=== PATIENT | female | born 1985 | race African-American/Black ===

== ENCOUNTER 2019-11-30 12:05 | Inpatient (IN) | payer OTHER ==
[~2019-11-30 12:05] MED LIST: Bupivacaine 0.25% HCL 30 ML VIAL ONE
[2019-12-03] MEDS ORDERED: Acetaminophen 500 MG TAB PO PRN (06:17)
[2019-12-03] MEDS ORDERED: Lidocaine 1% (PF) 30 ML VIAL SC PRN (06:17)
[2019-12-03] MEDS ORDERED: Butorphanol Tartrate 1 MG/ML VIAL SLOW IVP PRN (06:17)
[2019-12-03] MEDS ORDERED: NS / Oxytocin 40 units/1000ml 1,000 ML IV PRN (06:17)
[2019-12-03] MEDS ORDERED: Misoprostol 200 MCG TAB PR PRN (06:17)
[2019-12-03] MEDS ORDERED: HYDROcodone/Acetaminophen 5/325 mg Tablet PO PRN (06:17)
[2019-12-03] MEDS ORDERED: Promethazine HCl 25 MG/ML VIAL IM PRN ×2 (06:17→13:22)
[2019-12-03] MEDS ORDERED: Ibuprofen 800 MG TAB PO PRN (06:17)
[2019-12-03] MEDS ORDERED: Ondansetron PF 4 MG/2 ML Vial IVP PRN ×2 (06:17→13:22)
[2019-12-03] MEDS ORDERED: Carboprost 250 MCG/ML AMP IM PRN (06:17)
[2019-12-03] MEDS ORDERED: hydrALAZINE 20 MG/ML VIAL SLOW IVP PRN ×2 (06:17→18:30)
[2019-12-03] MEDS ORDERED: NS w/ Oxytocin 10 units 500 ML IV SCH ×2 (06:17)
[2019-12-03] MEDS ORDERED: Diphenoxylate HCl/Atropine Tablet PO PRN (06:17)
[2019-12-03] MEDS ORDERED: Penicillin G Potassium 5 MILL.UNITS in Sodium Chloride 0.9% 100 ML IVPB SCH (06:30)
[2019-12-03 06:36] VITALS: BMI 38.9
[2019-12-03 07:23] LABS: Hemoglobin 13.1 g/dL (12.0-16.0); Mean Corpuscular HGB CONC 32.6 g/dL (32.0-36.0); Mean Corpuscular Hemoglobin 28.2 pg (27.0-31.0); Mean Corpuscular Volume 86.6 fL (78.0-98.0); Mean Platelet Volume 8.1 fL (7.4-10.4); Platelet Count 258 thou/uL (130-400); RBC Distribution Width 13.1 % (11.5-14.5); Red Blood Cell (RBC) Count 4.65 mill/uL (4.20-5.40); White Blood Cell (WBC) Count 9.4 thou/uL (4.8-10.8)
[2019-12-03 08:12] LABS: Syphilis Antibody Nonreactive (Nonreactive); Syphilis Antibody Index 0.04 S/CO (<1.00 Non-Reactive)
[2019-12-03 08:13] LABS: HBSAg Index 0.24 S/CO (0-0.99); Hep B Surf Ag Non-Reactive S/CO (NonReactive)
[2019-12-03] MEDS: Penicillin G 2.5 MILL.units 2.5 MILL.UNITS in Premix Bag 1 BAG IVPB SCH (11:50)
[2019-12-03] MEDS ORDERED: Fentanyl 4 mcg/Bup 0.1% Cadd 100 ML ONE (12:42)
[2019-12-03] MEDS ORDERED: EPHEDRINE 25 MG/5 ML SYRINGE SLOW IVP PRN (13:22)
[2019-12-03] MEDS ORDERED: diphenhydrAMINE 50 MG/ML VIAL IVP PRN (13:22)
[2019-12-03] MEDS ORDERED: Acetaminophen 325 MG TAB PO PRN (13:22)
[2019-12-03] MEDS ORDERED: Naloxone HCl 0.4 mg/ml Vial IVP PRN ×2 (13:22)
[2019-12-03] MEDS ORDERED: Lactated Ringer's 500 ML IV PRN (13:22)
[2019-12-03] MEDS ORDERED: Fentanyl 4 mcg/Bupivacaine 0.1% Cassette 100 ML EPIDURAL SCH (13:30)
[2019-12-03] MEDS ORDERED: Communication Order-Pharmacy FS SCH (13:30)
--- NOTE | 2019-12-03 16:01 | PDOC.OPDEL ---
OB Operative/Delivery Note Delivery Dr/Surgeon: Jo Pre-Delivery Diagnosis: medically indicated induction Procedure/Post Delivery Dx: spontaneous vaginal delivery Weeks gestation: 37 Anesthesia: epidural - Findings A Sex: male Weight: 7 lb 6 oz - 1 min: 8 - 5 min: 9 - Additional Findings/Plan Placenta delivered: spontaneous Repaired Obstetrical Laceration: periurethral Compilations/Other Findings: Anterior shoulder delivery aided by McRobert's and suprapubic pressure. [place] more related to maternal expulsive effort. APGARS 8/9...Shoulder delivered quickly with above procedures. Post delivery plan: routine recovery
[2019-12-03] MEDS ORDERED: NS / Oxytocin 40 units/1000ml 1,000 ML ONE (18:04)
[2019-12-03] MEDS ORDERED: traMADol HCl 50 MG TAB PO PRN (18:30)
[2019-12-03] MEDS ORDERED: Bisacodyl 10 MG SUPP PR PRN (18:30)
[2019-12-03] MEDS ORDERED: NS / Oxytocin 40 units/1000ml 1,000 ML IV SCH (18:30)
[2019-12-03] MEDS ORDERED: Milk Of Magnesia 30 ML UDCUP PO PRN (18:30)
[2019-12-03] MEDS: Docusate Calcium (SURFAK) 240 MG CAP PO SCH (21:17)
[2019-12-03] MEDS: Ibuprofen 800 MG TAB PO SCH (21:17)
[2019-12-04] MEDS: Penicillin G 2.5 MILL.units 2.5 MILL.UNITS in Premix Bag 1 BAG IVPB SCH (05:45)
[2019-12-04] MEDS: Ibuprofen 800 MG TAB PO SCH ×2 (06:04→14:00)
--- NOTE | 2019-12-04 08:17 | PDOC.PP ---
Post Progress Note Post Day #: 1 Subjective: Doing well. Baby moving his hand and arm some. Would like to go home if baby is discharged. Has f/u in 6 weeks. Continue amlodipine 5 mg bid. PO intake tolerated: yes Flatus: yes Ambulation: yes Vital Signs (12 hours) Temp Pulse Resp BP Pulse Ox 12/04/19 07:52 98.5 F 86 20 134/71 97 12/04/19 06:03 98.8 F 83 14 133/71 98 12/04/19 01:09 98.9 F 85 14 147/82 H 99 Weight Weight 241 lb Result Diagrams: 12/03/19 06:49 Additional Labs: Post Labs Blood Type A POSITIVE 12/03/19 06:49 Hep Bs Antigen Non-Reactive S/CO (NonReactive) 12/03/19 06:49 - Assessment/Plan Post day 1.CHTN.s/p . Blood pressures adequate controlled. Will discharge home when baby is released. f/u in 6 weeks.
[2019-12-04] MEDS: Docusate Calcium (SURFAK) 240 MG CAP PO SCH (08:44)
[2019-12-04] MEDS: Ferrous Sulfate 325 MG TAB PO SCH ×2 (08:44→16:59)
[2019-12-04] MEDS ORDERED: Adacel (T-DAP) 0.5 ML SYRINGE IM ONE (09:00)
[2019-12-04 11:41] VITALS: BP 139/85; TEMP 98.1
== END 2019-12-04 17:20 | disposition home or self-care (01) | DRG 806 ==
LOC: L&D 12-03 05:57 → 3SW 12-03 19:31
PROVIDERS: ADMIT Obstetrics & Gynecology; ATTEND Obstetrics & Gynecology
PROC: 10E0XZZ Delivery of Products of Conception, External Approach (ICD-10-PCS; principal; 2019-12-03)
PROC: 3E033VJ Introduction of Other Hormone into Peripheral Vein, Percutaneous Approach (ICD-10-PCS; 2019-12-03)
PROC: 0UQMXZZ Repair Vulva, External Approach (ICD-10-PCS; 2019-12-03)
PROC: 10907ZC Drainage of Amniotic Fluid, Therapeutic from Products of Conception, Via Natural or Artificial Opening (ICD-10-PCS; 2019-12-03)
DX: O66.0 Obstructed labor due to shoulder dystocia (principal); O10.02 Pre-existing essential hypertension complicating childbirth; Z37.0 Single live birth; O99.824 Streptococcus B carrier state complicating childbirth; O70.0 First degree perineal laceration during delivery; O71.82 Other specified trauma to perineum and vulva; Z3A.37 37 weeks gestation of pregnancy
CPT/HCPCS: 36415; 51702; 85027; 86780; 86850; 86900; 86901; 87340; J2540; J2590; J3490